=== PATIENT | female | born 1980 | race African-American/Black ===

== ENCOUNTER → 2016-05-22 | Outpatient (CLI) | payer OTHER ==
[~2016-05-22] MED LIST: ISOVUE-370 76% 100ML VIAL (Q9967) As Ordered ONE
--- NOTE | 2016-05-22 11:18 | REP ---
CT HEAD WITHOUT AND WITH CONTRAST: HISTORY: Enlarged lymph nodes. CONTRAST: Isovue 370, 75 mL. There is no intraparenchymal hemorrhage, mass or midline shift. There is no abnormal enhancement. The ventricular system is normal in appearance. There is no extracerebral collection. The visualized sinuses are clear. IMPRESSION: There is no intracranial lesion. Signed by Boom Causey MD 05/22/2016 11:41 A
--- NOTE | 2016-05-22 11:28 | REP ---
CT NECK WITH CONTRAST: HISTORY: Enlarged lymph nodes. CONTRAST: Isovue 370, 75 mL. The naso-, rosi-, and hypopharynx, larynx and subglottic trachea are normal in appearance. The salivary and thyroid glands are normal. Small lymph nodes less than 1 cm in size are present in the internal jugular chains, posterior triangles, submandibular and submental areas. The lung apices are clear. The visualized sinuses are clear. IMPRESSION: There is no neck mass or adenopathy. Signed by Boom Causey MD 05/22/2016 11:41 A
== END ==
LOC: M RAD 10:35
PROVIDERS: ATTEND Physician Assistant
DX: R59.9 Enlarged lymph nodes, unspecified (principal)
CPT/HCPCS: 70470; 70491; Q9967